=== PATIENT | female | born 1950 | race Caucasian/White ===

== ENCOUNTER 2017-06-09 11:55 | Outpatient (CLI) | payer OTHER | END 2017-06-09 11:56 | disposition home or self-care (01) | LOC: BICMAMMO 11:55 | PROVIDERS: ATTEND Physician Assistant | DX: Z12.31 Encounter for screening mammogram for malignant neoplasm of breast (principal); R92.1 Mammographic calcification found on diagnostic imaging of breast | CPT/HCPCS: 77063; 77067 ==

== ENCOUNTER 2017-07-06 09:58 | Day surgery (SDC) | payer MEDICARE ==
[2017-07-05 15:09] VITALS: BMI 37.8
[2017-07-06] MEDS ORDERED: Midazolam HCl 2 mg/2 ml Vial ONE ×2 (11:09→11:12)
[2017-07-06] MEDS ORDERED: Fentanyl 100 MCG/2 ML VIAL ONE (11:09)
[2017-07-06] MEDS ORDERED: Diprivan 40 ML ONE (11:09)
--- NOTE | 2017-07-06 14:23 | MRI ---
MRI LEFT HIP WITHOUT CONTRAST: INDICATIONS: History of left hip pain. COMPARISON: None. FINDINGS: There is a partial-thickness articular surface tear involving the anterior to mid aspect of the left gluteus minimus tendon, at the insertion. The left gluteus medius tendon is intact. No muscular atr ophy is grossly evident. No iliopsoas or trochanteric bursitis is evident. The left hamstring and l eft rectus femoris origins appear within normal limits. There is mild to moderate osteoarthrosis of the left hip with subchondral cyst-like abnormalities involving the superior acetabulum. There is de generative fraying of the anterior-superior and superior acetabular labrum. No paralabral cyst is ev ident. the ligament of teres is intact. the visualized intrapelvic contents are unremarkable appear ing. Incidentally noted is a T2 hyperintense, T1 hypointense teardrop-shaped lesion seen adjacent to the lateral aspect of the left proximal femur, contiguous with a serpiginous area of T2 hyperintensi ty. Findings may reflect a small, low-flow vascular malformation versus a small nerve sheath tumor. No enlarged lymph nodes are evident. There are scattered diverticula present, involving the colon. The visualized aspects of the pelvis otherwise appear within normal limits. IMPRESSION: 1. Partial-thickness articular surface tear of the anterior to mid aspect of the left gluteus minimu s, at the insertion. 2. Mild to moderate osteoarthrosis of the left hip with degenerative fraying of the acetabular labru m. 3. Nonspecific T2 hyperintense, teardrop-shaped lesion seen within the soft tissues adjacent to the proximal left femur may reflect a small, low-flow vascular malformation or a small benign nerve sheat h tumor. As a conservative measure, would recommend a follow-up MRI of the left hip with and without contrast, in three months, to document stability. This would also help in further characterization of this abnormality. POS: [facility]
== END 2017-07-06 13:00 | disposition home or self-care (01) ==
LOC: SDC/OP 09:58 → EDSTATUS 12:00 → SDC/OP 13:00
PROVIDERS: ATTEND Orthopaedic Surgery
DX: S76.312A Strain of muscle, fascia and tendon of the posterior muscle group at thigh level, left thigh, initial encounter (principal); M16.12 Unilateral primary osteoarthritis, left hip; E11.9 Type 2 diabetes mellitus without complications; E78.5 Hyperlipidemia, unspecified; F32.9 Major depressive disorder, single episode, unspecified; Z79.84 Long term (current) use of oral hypoglycemic drugs; Z79.899 Other long term (current) drug therapy; Z98.51 Tubal ligation status; Z87.891 Personal history of nicotine dependence
CPT/HCPCS: J2250; J2704; J3010

== ENCOUNTER 2018-06-14 09:23 | Outpatient (CLI) | payer MEDICARE ==
--- NOTE | 2018-06-14 11:53 | ULT ---
ULTRASOUND PELVIC ULTRASOUND TRANSVAGINAL DOPPLER DUPLEX: Date: 06/14/18 HISTORY: 68-year-old female with postmenopausal vaginal bleeding. TECHNIQUE: Transabdominal transducer used to evaluate intrapelvic contents using the urinary bladder as an acous tic window. Endovaginal transducer used to visualize intrapelvic contents in greater detail. Color fl ow Doppler and Pulsed Doppler spectral waveform analysis of ovaries. Dr. Farley reported the findings that are highly suspicious for endometrial carcinoma by telephone to Dr Rafael Greene, at 1023 hours on 06/14/18. FINDINGS: Uterus measures approximately 9 x 5 x 4 cm. At the body/fundus of the uterus, there is a centrally located, heterogeneously hyperechoic, approxim ately 2 cm mass with very irregular margins, obliterating the endometrial stripe. This appears to be arising from the endometrium. It extends into the myometrium, but does not appear to reach the seros al surface. Centrally within the endometrial cavity at the body/fundus, there are fingerlike projecti ons of this mass, outlining a small amount of intraluminal fluid. This is highly suspicious for endom etrial carcinoma. In the body and lower uterine segment, the endometrial canal is slightly dilated an d filled with fluid, plus material of intermediate echogenicity which may represent thrombotic materi al. No obvious uterine fibroids are visualized. No free fluid in the cul-de-sac. The postmenopausal ovari es are not visualized. IMPRESSION: Evidence for endometrial carcinoma. CODE CR. JN R POS: [facility]
== END 2018-06-14 09:24 | disposition home or self-care (01) ==
LOC: BICULT 09:23
PROVIDERS: ATTEND Family Medicine
DX: N95.0 Postmenopausal bleeding (principal); C54.1 Malignant neoplasm of endometrium
CPT/HCPCS: 76856

== ENCOUNTER 2018-06-17 11:37 | Outpatient (CLI) | payer MEDICARE | END 2018-06-17 11:38 | disposition home or self-care (01) | LOC: BICMAMMO 11:37 | PROVIDERS: ATTEND Family Medicine | DX: Z12.31 Encounter for screening mammogram for malignant neoplasm of breast (principal) | CPT/HCPCS: 77063; 77067 ==

== ENCOUNTER 2018-07-22 09:00 | Outpatient (CLI) | payer MEDICARE ==
[2018-07-22] MEDS ORDERED: ISOVUE-370 76%-LOCM 1 ML ONE (12:44)
--- NOTE | 2018-07-22 14:20 | CT ---
CHEST CT WITH AND WITHOUT CONTRAST ABDOMEN CT WITH AND WITHOUT CONTRAST PELVIS CT WITH AND WITHOUT CONTRAST: Date: 07/22/18 HISTORY: Endometrial cancer. History of abnormal ultrasound previously. Vaginal bleeding. Lower pelvic discomf ort. COMPARISON: None. TECHNIQUE: Chest, abdomen, and pelvis CT are performed with and without IV contrast. Reformatted images are subm itted for interpretation. FINDINGS: CHEST CT: No mediastinal mass, lymphadenopathy, or hematoma. Heart size is within normal limits. No pericardial effusion. The thoracic aorta and abdominal aorta have an overall normal caliber. No periaortic fat s tranding. Trachea and central bronchi are patent. 0.6 x 0.5 cm nodule in the superior segment of the left lower lobe. Indeterminate opacity in the ante rior aspect of the left upper lobe measuring 0.6 x 0.5 cm. There are no suspicious masses or consolid ation in the right lung. Minimal atelectatic changes. No pneumothorax or pleural effusion. ABDOMEN CT: Portal vein is patent. Unremarkable gallbladder. Liver, spleen, and pancreas have appropriate attenua tion. Right adrenal gland is unremarkable. There is a hypodense mass associated with the left adrenal gland . Noncontrast attenuation coefficient is 4 Hounsfield units. Lesion is compatible with a benign adeno ma measuring 2.1 x 1.5 cm. No gastrohepatic, retrocrural, or periportal lymphadenopathy. No mesenteric mass, lymphadenopathy, free air, or free fluid. Symmetric enhancement of the kidneys. Bilaterally, no obstructive uropathy. Gastric mucosa, duodenum, and multiple normal caliber small bowel loops are identified. Ileocecal mony ction is normal. Normal caliber retrocecal appendix. Colon is unremarkable. Diverticulosis without ev idence of diverticulitis. CT PELVIS: No evidence of significant pelvic mass, lymphadenopathy, or free fluid. Uterus is unremarkable. Urina ry bladder is also unremarkable. No lytic or blastic lesions within the osseous structures. IMPRESSION: Two separate nodules involving the left lung as described above. These size of the nodules is slightl y lower than the imaging threshold criteria for PET imaging. As a conservative measure, 6 month follo w-up CT is recommended. Conversely, comparison with prior imaging, if available, would be beneficial. POS: [facility]
== END 2018-07-22 09:01 | disposition home or self-care (01) ==
LOC: BICCT 09:00
PROVIDERS: ATTEND Obstetrics & Gynecology Gynecologic Oncology
DX: C54.1 Malignant neoplasm of endometrium (principal); R91.8 Other nonspecific abnormal finding of lung field
CPT/HCPCS: 71250; 71260; 74177; 82565; Q9966

== ENCOUNTER 2019-02-10 10:53 | Outpatient (CLI) | payer MEDICARE ==
--- NOTE | 2019-02-10 12:55 | CT ---
Chest CT: 02/10/2019 COMPARISON: 07/22/2018 HISTORY: Reevaluate pulmonary nodules noted on prior CT examination TECHNIQUE: Axial CT imaging obtained at 3 mm intervals from the thoracic inlet through the upper abdo men with IV contrast. Coronal and sagittal reformatted imaging obtained FINDINGS: No mediastinal, hilar, or axillary lymphadenopathy is noted. There is scattered atherosclerotic calcification of the imaged abdominal aorta and its branches. Imag ed upper abdomen demonstrates no acute findings. There is a small sliding-type hiatal hernia noted. There is no pleural, pericardial, or mediastinal fluid seen. There is atherosclerotic calcification of the aortic arch in the descending thoracic aorta. No pneumothorax is noted on either side. There is a pulmonary nodule within the superior segment of the left lower lobe measuring 6 mm in AP d imension, stable when compared to the prior examination. There is an ill-defined peripheral anterior left upper lobe pulmonary nodule measuring 6 mm in AP dim ension, which appears similar when compared to the prior examination as well no new pulmonary nodule is noted on the left. No discrete pulmonary parenchymal mass lesion or nodule is apparent on the right. No acute osseous abnormality is evident. There is multilevel degenerative change within the image spine with multilevel anterior osteophyte fo rmation within the thoracic spine and upper lumbar spine. There is no worrisome lytic or blastic bone lesion seen IMPRESSION: Stable left-sided pulmonary nodules. Continued follow-up advised. Recommend CT examinatio n in 6 months to document stability.
== END 2019-02-10 10:54 | disposition home or self-care (01) ==
LOC: BICCT 10:53
PROVIDERS: ATTEND Obstetrics & Gynecology Gynecologic Oncology
DX: C54.1 Malignant neoplasm of endometrium (principal); R91.8 Other nonspecific abnormal finding of lung field
CPT/HCPCS: 71260; 82565

== ENCOUNTER 2019-06-21 20:30 | Outpatient (CLI) | payer MEDICARE | END 2019-06-21 20:31 | disposition home or self-care (01) | LOC: SLEEPLAB 20:30 | PROVIDERS: ATTEND Family Medicine | DX: G47.33 Obstructive sleep apnea (adult) (pediatric) (principal); R53.83 Other fatigue; G47.10 Hypersomnia, unspecified; E11.9 Type 2 diabetes mellitus without complications; F32.9 Major depressive disorder, single episode, unspecified; G47.00 Insomnia, unspecified | CPT/HCPCS: 95811 ==

== ENCOUNTER 2019-07-24 13:22 | Outpatient (CLI) | payer MEDICARE ==
--- NOTE | 2019-07-24 14:06 | MMO ---
Bilateral MAMMO Bilat Screen [facility]. CLINICAL HISTORY: Patient is 69 years old and is seen for screening. VIEWS: The views performed were: . FILMS COMPARED: The present examination has been compared to prior imaging studies performed at [facility] on 08/17/2013, 03/20/2016, 06/09/2017 and 06/17/2018. This study has been interpreted with the assistance of computer-aided detection. MAMMOGRAM FINDINGS: There are scattered fibroglandular densities. There are stable benign appearing calcifications seen in both breasts. There are no suspicious masses, suspicious calcifications, or new areas of architectural distortion. IMPRESSION: THERE IS NO MAMMOGRAPHIC EVIDENCE OF MALIGNANCY. A ROUTINE FOLLOW-UP MAMMOGRAM IN 1 YEAR IS RECOMMENDED. THE RESULTS OF THIS EXAM WERE SENT TO THE PATIENT. ACR BI-RADS Category 2 - Benign finding MAMMOGRAPHY NOTE: 1. A negative mammogram report should not delay a biopsy if a dominant of clinically suspicious mass is present. 2. Approximately 10% to 15% of breast cancers are not detected by mammography. 3. Adenosis and dense breasts may obscure an underlying neoplasm. Reported by: GEE MARES MD Electonically Signed: [id number]
== END 2019-07-24 13:23 | disposition home or self-care (01) ==
LOC: BICMAMMO 13:22
PROVIDERS: ATTEND Family Medicine
DX: Z12.31 Encounter for screening mammogram for malignant neoplasm of breast (principal)
CPT/HCPCS: 77063; 77067

== ENCOUNTER 2020-08-09 11:08 | Outpatient (CLI) | payer MEDICARE | END 2020-08-09 11:09 | disposition home or self-care (01) | LOC: BICMAMMO 11:08 | PROVIDERS: ATTEND Physician Assistant | DX: Z12.31 Encounter for screening mammogram for malignant neoplasm of breast (principal) | CPT/HCPCS: 77063; 77067 ==

== ENCOUNTER 2020-11-01 10:52 | Emergency (ER) | payer OTHER, MEDICARE ==
[2020-11-01 14:16] LABS: #Basophils 0.1 thou/uL (0.0-0.2); #Eosinphils 0.2 thou/uL (0.0-0.7); #Lymphocytes 2.1 thou/uL (1.20-3.40); #Monocytes 0.6 thou/uL (0.11-0.59); #Neutrophils 3.5 thou/uL (1.40-6.50); %Basophils 0.9 % (0.0-1.0); %Eosinophils 2.7 % (0.0-10.0); %Lymphocytes 32.4 % (21.0-51.0); %Monocytes 9.4 % (0.0-10.0); %Neutrophils 54.6 % (42.0-75.0); Mean Corpuscular HGB CONC 34.4 g/dL (32.0-36.0); Mean Corpuscular Hemoglobin 32.5 pg (27.0-31.0); Mean Corpuscular Volume 94.4 fL (78.0-98.0); Mean Platelet Volume 7.4 fL (7.4-10.4); Platelet Count 224 thou/uL (130-400); RBC Distribution Width 11.3 % (11.5-14.5); Red Blood Cell (RBC) Count 4.02 mill/uL (4.20-5.40); White Blood Cell (WBC) Count 6.5 thou/uL (4.8-10.8)
[2020-11-01 14:39] LABS: ALT (SGPT) 26 U/L (8-55); AST (SGOT) 18 U/L (5-34); Albumin 4.1 g/dL (3.4-4.8); Alkaline Phosphatase 79 U/L (40-110); Anion Gap 16 mmol/L (10-20); BUN (Urea Nitrogen) 14 mg/dL (9.8-20.1); Bilirubin, Total 0.5 mg/dL (0.2-1.2); Calc. Creatinine Clearance 0 mL/min (70-130); Calcium 10.2 mg/dL (7.8-10.44); Carbon Dioxide 24 mmol/L (23-31); Chloride 100 mmol/L (98-107); Globulin 2.6 g/dL (2.4-3.5); Glucose 95 mg/dL (83-110); Potassium 4.5 mmol/L (3.5-5.1); Protein, Total 6.7 g/dL (5.8-8.1); Sodium 135 mmol/L (136-145)
[2020-11-01] MEDS ORDERED: Ibuprofen 200 MG TAB ONE (14:44)
== END 2020-11-01 15:45 | disposition home or self-care (01) ==
LOC: ERS 10:52
DX: S09.21XA Traumatic rupture of right ear drum, initial encounter (principal); S30.1XXA Contusion of abdominal wall, initial encounter; E11.9 Type 2 diabetes mellitus without complications; E78.5 Hyperlipidemia, unspecified; E78.00 Pure hypercholesterolemia, unspecified; Z87.891 Personal history of nicotine dependence; Z79.84 Long term (current) use of oral hypoglycemic drugs; Z79.899 Other long term (current) drug therapy; V89.2XXA Person injured in unspecified motor-vehicle accident, traffic, initial encounter
CPT/HCPCS: 36415; 70450; 71045; 74177; 80053; 85025

== ENCOUNTER 2021-12-01 12:35 | Outpatient (CLI) | payer MEDICARE ==
[~2021-12-01 12:35] MED LIST: Iopamidol-370 76% 500 ML 1 ML ONE
== END 2021-12-01 12:36 | disposition home or self-care (01) ==
LOC: BICCT 12:35
PROVIDERS: ATTEND Internal Medicine
DX: K31.89 Other diseases of stomach and duodenum (principal)
CPT/HCPCS: 71260; 74177; 82565; Q9967

== ENCOUNTER 2021-12-03 09:28 | Outpatient (CLI) | payer MEDICARE | END 2021-12-03 09:29 | disposition home or self-care (01) | LOC: BICMAMMO 09:28 | PROVIDERS: ATTEND Internal Medicine | DX: Z12.31 Encounter for screening mammogram for malignant neoplasm of breast (principal); R92.8 Other abnormal and inconclusive findings on diagnostic imaging of breast | CPT/HCPCS: 76642; 77066; G0279; 77063; 77067 ==

== ENCOUNTER 2023-06-22 12:48 | Outpatient (CLI) | payer MEDICARE | END 2023-06-22 12:49 | disposition home or self-care (01) | LOC: BICMAMMO 12:48 | PROVIDERS: ATTEND Internal Medicine | DX: Z12.31 Encounter for screening mammogram for malignant neoplasm of breast (principal); Z85.42 Personal history of malignant neoplasm of other parts of uterus | CPT/HCPCS: 77063; 77067 ==